=== PATIENT | male | born 1980 | race Two or more races ===

== ENCOUNTER 2023-05-04 11:43 | Emergency (ER) | payer OTHER, SELFPAY ==
[2023-05-04 12:07] VITALS: BP 108/64; PULSE 71; RESP 16; TEMP 36; O2SAT 99; BMI 27.1
--- NOTE | 2023-05-04 12:12 | ED.GENADULT ---
HPI - General Adult General Chief complaint: General Medical Stated complaint: remove jennifer Time Seen by Provider: 05/04/23 12:12 Source: patient and RN notes reviewed Mode of arrival: ambulatory Limitations: no limitations History of Present Illness HPI narrative: This is a 42-year-old male presenting to the emergency department for removal of 3 jennifer placed on head 10 days ago. Patient was seen at [facility] after an object fell from the ceiling and struck him in the head, lacerating the top of his head. He went to [facility] where he had sutures placed. Patient states he tolerated the jennifer well without complications or concerns. No fevers, chills, drainage from the area. Patient's tetanus is up-to-date. No other complaints or concerns at this time. MD complaint: Staple removal Onset (ago): day(s) Location: head Radiation: non-radiation Relieving factors: none Exacerbating factors: none Associated symptoms: denies other symptoms Treatments prior to arrival: none Related Data Allergies Allergy/AdvReac Type Severity Reaction Status Date / Time No Known Allergies Allergy Verified 05/04/23 12:07 Review of Systems Review of Systems: Constitutional: No Weight loss, No Fever, No Chills ENT/Mouth: No Ear Pain, No Nasal Congestion, No Sinus Pain, No Hoarseness, No sore throat, No Rhinorrhea, No Swallowing Difficulty Cardiovascular: No Chest Pain, No SOB Respiratory: No Cough, No Sputum, No Wheezing Gastrointestinal: No Nausea, No Vomiting, No Diarrhea, No Constipation, No Abdominal pain Genitourinary: No Dysuria, No Urinary Frequency, No Hematuria, No Urinary Incontinence/retention, No Urgency, No Flank Pain Musculoskeletal: No joint pain, No Myalgias, No Joint Swelling Skin: No Skin Lesions, No rash Neuro: No Weakness, No Numbness, No Paresthesias PMFSH Social History Social History Advance Directives: No Advance Directives Information Provided: No Physical Exam ED Vital Signs: Vital Signs - 24 hr 05/04/23 12:07 Temperature 96.8 F Pulse Rate 71 Respiratory Rate 16 Blood Pressure 108/64 Pulse Oximetry 99 Oxygen Delivery Method Room Air BMI result Body Mass Index 27.1 Const Other: General: Awake, alert, and oriented X3. No acute distress. HEENT: Normal inspection CVS: Normal heart rate and rhythm. Pulses normal. Respiratory: No respiratory distress Skin: There is a well-healed 3cm laceration to the crown head that is well approximated. No drainage or to discharge from the area. No surrounding erythema, fluctuance or induration. Extremities: Normal to inspection Neuro: Oriented X 3. No motor deficit. No sensory deficit. Medical Decision Making Medical Decision Making MDM Narrative: This is a 42-year-old male presenting to the emergency department for evaluation staple removal. Three jennifer removed head, patient tolerated procedure well without any complications or concerns. Differential Diagnosis Differential Diagnoses: The differential diagnosis associated with the presentation includes Staple removal, cellulitis wound dehiscence, wound check Discharge Plan Discharge Clinical Impression: Encounter for removal of jennifer Patient Disposition: Home, Self-Care Instructions: Staple Care (ED) Additional Instructions: We removed 3 jennifer from your head today. There are no signs of infection at this time. Please gently cleanse area, you may use a gentle soap and pat area dry. Do not pick at wound as it is still trying to heal. Watch for any signs of infection including drainage fevers or chills. Please return any as the symptoms or any new worsening symptoms occur. Interventions: ED Discharge Assessment Last Done: 05/04/23 12:22 Discharge Date/Time: 05/04/23 12:24
--- OUTSIDE RECORDS SUMMARY | 2023-05-04 12:23 | XMS_ITS ---
Continuity of Care Document Created on: December 09, 2021 MINERVA MA
== END 2023-05-04 12:24 | disposition home or self-care (01) ==
PROVIDERS: Emergency Provider Emergency Medicine Emergency Medical Services; PCP Internal Medicine
DX: Z48.02 Encounter for removal of sutures (principal); S01.01XD Laceration without foreign body of scalp, subsequent encounter; W20.8XXD Other cause of strike by thrown, projected or falling object, subsequent encounter
CPT/HCPCS: 99282

== ENCOUNTER 2023-07-14 10:08 | Outpatient (AMB) | payer OTHER, SELFPAY ==
--- NOTE | 2023-07-14 10:14 | MHC.OFFVIS ---
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 Pt reports non refreshing sleep, he feels he did not sleep enough. He wakes up startles, gasping and palpitation. Pt reports he can't sleep on flat, due to GERD. He feels throat tightness and uses edge pillow. Pt reports thyroid nodule, but not surgery needed and monitoring routinely. Sleep questionnaire: Have you ever been diagnosed with a sleep disorder? No. Have you ever had a sleep study in the past? No. Have you ever been treated for a sleep disorder? No. Do you take medications for a sleep disorder? No. Do you snore? No. Do you wake up gasping at night? Yes. Do you have episodes of apneas? No. If yes, are they witnessed? No. Do you have episodes of nocturnal chest pain or dyspnea? Yes, Do you have difficulty initiating sleep? No. Do you have difficulty maintaining sleep? No. Do you wake up tired? Yes. Do you have headaches upon awakening? No. Do you wake up with dry mouth or throat? No. Do you have GERD? No. Do you have nocturia? No. Do you have nocturnal leg cramps? No. Do you have symptoms of restless legs? No. Do you act out your dreams? No, but startles. Sleep hygiene questionnaire: What is your usual sleep routine? Usual bedtime is at 11 pm; Usual wake up time is at 6-7 am. Do you take naps? No. Is your sleep environment cool, dark, and quiet? Yes. Do you exercise? Yes. Do you take caffeine or other stimulants? Coffee and black tea, 4-5 times a day. Do you use electronics in bed? Yes, sometimes. What is your work schedule? 10 am to 5 pm. Hypersomnolence questionnaire: Do you have daytime tiredness or fatigue? Yes. Do you easily fall asleep when inactive? No. Have you ever had episodes of sudden weakness? No. Have you ever had episodes of sudden weakness associated with strong emotions? No. PFSH Medical History (Updated 07/17/23 @ 08:49 by Luis Antonio Maldonado CNP) GERD (gastroesophageal reflux disease) Thyroid nodule Family History (Updated 07/14/23 @ 10:19 by Kim Duvall CMA) Father Diabetes Mother Thyroid cyst Social History (Updated 07/14/23 @ 10:19 by Kim Duvall CMA) Alcohol intake: never Patient Tobacco Use Status: Never used Tobacco Review of Systems Const All systems reviewed & are unremarkable except as noted in HPI and below ENT Reports Normal hearing present Neuro Reports Normal hearing present Physical Exam Vital Signs: Last Vital Signs Pulse 80 07/14/23 10:19 BP 120/62 07/14/23 10:19 Pulse Ox 98 07/14/23 10:19 Oxygen Delivery Method Room Air 07/14/23 10:19 BMI result Body Mass Index 28.6 Const General: cooperative Nutritional Appearance: overweight Orientation/consciousness: patient oriented x3 Neck Neck: Yes full ROM and Yes supple Thyroid: solitary palpable nodule Resp Effort & Inspection: normal respiratory effort and able to speak in complete sentences Neuro General: patient oriented x3, gait normal and moves all extremities Cranial nerves: Yes Bilaterally intact EOM present, Yes Normal facial strength present, Yes Midline tongue present, Yes Symmetric palate elevation present, Yes Normal hearing present, Yes Ability to bilaterally rotate head present and Yes Ability to bilaterally elevate shoulders present Cognition (Neuro): normal cognition Gait exam (Neuro): Normal gait present Motor exam (neuro): 5/5 motor strength present throughout, Pronator motor function not present and no tremor noted Psych Appearance: grossly normal Mental Status: mental status grossly normal Speech and movement: Normal speech and movement present Affect: normal affect Attitude: cooperative Assessment & Plan Assessment & Plan (1) Snoring: Code(s): R06.83 - Snoring (2) Daytime sleepiness: Code(s): R40.0 - Somnolence Plan Pt is advised to undergo home sleep study to assess for sleep apnea. Will f/u with pt after study to discuss results and appropriate treatment options. Discussed life style modification to manage GERD, limit heavy meals before 2-3 hrs before bedtime, limit caffeine intake in the evening. He may try digestive enzyme. Pt to call with any worsening concerns or questions. Orders: Orders RT home sleep study Today K21.9 - Gastro-esophageal reflux disease without esophagitis, R06.83 - Snoring, R40.0 - Somnolence Coding Level of Care Code New Pt Level 4 (09685) Diagnoses Snoring R06.83 Daytime sleepiness R40.0
[2023-07-14 10:19] VITALS: BP 120/62; PULSE 80; O2SAT 98; BMI 28.6
== END 2023-07-14 10:54 | disposition home or self-care (01) ==
PROVIDERS: PCP Internal Medicine; Visit Provider Nurse Practitioner Family
DX: R06.83 Snoring (principal); R40.0 Somnolence
CPT/HCPCS: 99204

== ENCOUNTER → 2023-07-14 10:08 | Outpatient (BNVA) | payer OTHER, MEDICAID, SELFPAY | PROVIDERS: PCP Internal Medicine; Visit Provider Nurse Practitioner Family ==

== ENCOUNTER → 2023-08-28 09:16 | Outpatient (REF) | payer OTHER, SELFPAY | LOC: HO.SL 09:16 | PROVIDERS: PCP Internal Medicine; Visit Provider Nurse Practitioner Family | DX: Z13.89 Encounter for screening for other disorder (principal) ==

== ENCOUNTER → 2023-11-20 11:54 | Outpatient (REF) | payer OTHER, SELFPAY | LOC: HO.SL 11:54 | PROVIDERS: PCP Internal Medicine; Visit Provider Nurse Practitioner Family | DX: R40.0 Somnolence (principal); R06.83 Snoring; K21.9 Gastro-esophageal reflux disease without esophagitis | CPT/HCPCS: 95806 ==

== ENCOUNTER → 2023-11-20 13:53 | Outpatient (BNV) | payer OTHER, SELFPAY | PROVIDERS: PCP Internal Medicine; Visit Provider Psychiatry & Neurology Neurology | DX: R06.83 Snoring (principal) | CPT/HCPCS: 95806 ==